=== PATIENT | female | born 1945 | race Caucasian/White ===

== ENCOUNTER → 2018-06-30 | Outpatient (CLI) | payer MEDICARE, OTHER ==
[~2018-06-30] MED LIST: ASCO500T9 PO; ASPI-1197 PO; CLOP75TA14 PO; DULCOLAX PO; METO25 PO; OMEG-96 PO; PREMC VG; SIMV20TA6 PO; SUPER B COMPLEX PO
== END | disposition home or self-care (01) ==
LOC: RAH 07:51
PROVIDERS: ATTEND Urology
DX: K57.30 Diverticulosis of large intestine without perforation or abscess without bleeding (principal); Z90.49 Acquired absence of other specified parts of digestive tract
CPT/HCPCS: 74176